=== PATIENT | female | born 1960 ===

== ENCOUNTER 2020-04-02 07:37 | Day surgery (SDC) | payer BC, OTHER ==
[~2020-04-02 07:37] MED LIST: Lactated Ringers 1,000 ML IV SCH; Midazolam 1 MG/ML 2 ML SDV ONE; Propofol 200 MG/20 ML SDV ONE; fentaNYL 100 MCG/2 ML SDV ONE
--- NOTE | 2020-04-02 08:36 | PCM.PREANE ---
Preanesthetic Assessment - Anesthesia/Transfusion/Family Hx Anesthesia History: Prior Anesthesia Without Reaction Family History of Anesthesia Reaction: No Transfusion History: No Prior Transfusion(s) - Review of Systems General: No Symptoms Pulmonary: No Symptoms Cardiovascular: No Symptoms Gastrointestinal: No Symptoms Neurological: No Symptoms Other: Reports: None - Physical Assessment NPO Status Date: 04/01/20 Height: 5 ft 2 in Weight: 46.72 kg ASA Class: 2 Mental Status: Alert & Oriented x3 Airway Class: Mallampati = 2 Dentition: Reports: Normal Dentition ROM/Head Extension: Full Lungs: Clear to Auscultation, Normal Respiratory Effort Cardiovascular: Regular Rate, Regular Rhythm - Allergies Allergies/Adverse Reactions: Allergies Allergy/AdvReac Type Severity Reaction Status Date / Time No Known Allergies Allergy Verified 03/27/20 11:16 - Blood Blood Available: No - Anesthesia Plan Pre-Op Medication Ordered: None - Acknowledgements Anesthesia Type Planned: General Anesthesia Pt an Appropriate Candidate for the Planned Anesthesia: Yes Alternatives and Risks of Anesthesia Discussed w Pt/Guardian: Yes Pt/Guardian Understands and Agrees with Anesthesia Plan: Yes Additional Comments: pmh: anxiety, thyroid replacement PLAN: tiva PreAnesthesia Questionnaire HEENT History: Reports: Other (See Below) Other HEENT History: wears glasses Gastrointestinal History: Reports: Colon Polyp Genitourinary History: Reports: None 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: Neurological History: Reports: Seizure Other Neuro History: hx of seizures- last one in 2008- due to low calcium levels from Thyroidectomy Psychiatric History: Reports: Anxiety Endocrine/Metabolic History: Reports: Hypothyroidism - Past Surgical History Head Surgeries/Procedures: Reports: None HEENT Surgical History: Reports: Oral Surgery Other HEENT Surgeries/Procedures: has several dental implants GI Surgical History: Reports: Colonoscopy Endocrine Surgical History: Reports: Thyroidectomy - SUBSTANCE USE Tobacco Use Status *Q: Never Tobacco User Recreational Drug Use History: No - HOME MEDS Home Medications: Home Meds Ascorbic Acid [Vitamin C] 1,000 mg PO DAILY 04/01/17 [History] Calcium Carbonate/Vitamin D3 [Calcium 500 + Vit D 400] 1 tab PO DAILY 04/01/17 [History] ClonazePAM [KlonoPIN] 1 mg PO BEDTIME 04/01/17 [History] L.acidoph,Paracasei, B.lactis [Probiotic] 1 tab PO DAILY 04/01/17 [History] Levothyroxine Sodium 88 mcg PO BEDTIME 04/01/17 [History] Magnesium Oxide [Magnesium] 400 mg PO DAILY 04/01/17 [History] Vitamin A 10,000 units PO WEEKLY 04/01/17 [History] Vitamin E 400 unit PO DAILY 04/01/17 [History] calcitrioL [Calcitriol] 0.25 mcg PO DAILY 04/01/17 [History] - CURRENT (IN HOUSE) MEDS Current Meds: Current Medications Lactated Ringer's (Ringers, Lactated) 1,000 mls @ 125 mls/hr IV ASDIRECTED YOU Discontinued Medications Fentanyl (Sublimaze) Confirm Administered Dose 100 mcg .ROUTE .STK-MED ONE Stop: 04/02/20 07:25 Lidocaine HCl (Xylocaine-Mpf 1%) Confirm Administered Dose 5 ml .ROUTE .STK-MED ONE Stop: 04/02/20 07:25 Midazolam HCl (Versed 1 Mg/Ml) Confirm Administered Dose 2 mg .ROUTE .STK-MED ONE Stop: 04/02/20 07:25 Propofol (Diprivan 20 Ml) Confirm Administered Dose 200 mg .ROUTE .STK-MED ONE Stop: 04/02/20 07:25
[2020-04-02] MEDS ORDERED: Propofol 200 MG/20 ML SDV ONE (09:43)
--- NOTE | 2020-04-02 10:22 | PCM.OPNOTE ---
- General Post-Op/Procedure Note Date of Surgery/Procedure: 04/02/20 Operative Procedure(s): Colonoscopy with cold cecal and ascending colon polypectomies Pre Op Diagnosis: Personal history of colon polyps. Family history of colon cancer. Post-Op Diagnosis: Cecal and ascending colon polyps. Anesthesia Technique: MAC (ASA II) Primary Surgeon: Oskar Rivera Combination Welder Apprentice: Olayinka Rosa Condition: Good Free Text/Narrative:: DICTATION [id number] CPT CODE 84447
[2020-04-02] MEDS ORDERED: Lactated Ringers 1,000 ML IV SCH (10:30)
--- NOTE | 2020-04-02 11:16 | PCM48HPAN ---
Post Anesthesia Note - EVALUATION WITHIN 48HRS OF ANESTHETIC Vital Signs in Normal Range: Yes Patient Participated in Evaluation: Yes Respiratory Function Stable: Yes Airway Patent: Yes Cardiovascular Function Stable: Yes Hydration Status Stable: Yes Pain Control Satisfactory: Yes Nausea and Vomiting Control Satisfactory: Yes Mental Status Recovered: Yes Vital Signs: Last Vital Signs Temp 98.6 F 04/02/20 09:00 Pulse 64 04/02/20 10:32 Resp 17 04/02/20 10:32 BP 107/68 04/02/20 10:32 Pulse Ox 100 04/02/20 10:32
--- NOTE | 2020-04-02 11:16 | PCM.POSTAN ---
POST ANESTHESIA ASSESSMENT - MENTAL STATUS Mental Status: Alert, Oriented - VITAL SIGNS Vital Signs: Last Vital Signs Temp 98.6 F 04/02/20 09:00 Pulse 64 04/02/20 10:32 Resp 17 04/02/20 10:32 BP 107/68 04/02/20 10:32 Pulse Ox 100 04/02/20 10:32 - RESPIRATORY Respiratory Status: Respiratory Rate WNL, Airway Patent, O2 Saturation Stable - CARDIOVASCULAR CV Status: Pulse Rate WNL, Blood Pressure Stable - GASTROINTESTINAL GI Status: No Symptoms - POST OP HYDRATION Hydration Status: Adequate & Stable
--- NOTE | 2020-04-02 11:29 | OR ---
SURGEON: Oskar Rivera M.D. DATE OF PROCEDURE: 04/02/2020 OPERATION PERFORMED: Colonoscopy with cold cecal and ascending colon polypectomy. PRIMARY SURGEON: Oskar Rivera MD ANESTHESIA: MAC. ASA CLASSIFICATION: II. PREOPERATIVE DIAGNOSES: 1. Personal history of colon polyps. 2. Family history of colon cancer. POSTOPERATIVE DIAGNOSES: Cecal and ascending colon polyps. DESCRIPTION OF PROCEDURE: The patient was taken to the endoscopy room, positioned on the endoscopy table in the left lateral decubitus position. Time-out was called for appropriate identification of the patient and procedure. Monitored anesthesia care was provided. The colonoscope was inserted into the rectum and advanced with minimal difficulty to the cecum. The cecum was identified by internal landmarks and external pressure. One polyp was encountered in the cecum and a second polyp encountered just distal to this at the beginning of the ascending colon. Separate polypectomies were carried out. The colonoscope was retroflexed to visualize the ascending colon from below, then straightened and slowly withdrawn. The remainder of the ascending colon, hepatic flexure, transverse colon, splenic flexure, descending colon, sigmoid colon, and rectum showed no tumors, polyps, diverticula, or angiodysplastic changes. Once the colonoscope was withdrawn to the rectum, it was retroflexed to visualize the anal orifice from above. Again, no tumors or polyps were seen, and there were no acute hemorrhoidal changes. The colonoscope was then straightened, the rectum aspirated, and then colonoscope removed. The patient tolerated the procedure well and was taken to recovery room in satisfactory condition. MARC / TERESA /[id number]
== END 2020-04-02 11:10 | disposition home or self-care (01) ==
LOC: MW.SDS 07:37
PROVIDERS: ATTEND Surgery
DX: Z12.11 Encounter for screening for malignant neoplasm of colon (principal); D12.0 Benign neoplasm of cecum; D12.2 Benign neoplasm of ascending colon; F41.9 Anxiety disorder, unspecified; E03.9 Hypothyroidism, unspecified; Z79.899 Other long term (current) drug therapy; Z79.890 Hormone replacement therapy; Z98.890 Other specified postprocedural states; Z80.0 Family history of malignant neoplasm of digestive organs
CPT/HCPCS: 45380; 88305; J2001; J2250; J2704; J3010; J7120